=== PATIENT | female | born 1970 | race Caucasian/White ===

== ENCOUNTER → 2021-05-29 | Outpatient (CLI) | payer OTHER ==
[~2021-05-29] MED LIST: APAP500 PO; DERMOPLAST SPRA56 ML; IBUPROFEN 600600 M1 PO; LANOLIN56 GM; SENOKOT-S1 TA1 PO; TUCKS MEDICATE1 EAC1
== END ==
LOC: RAD 14:36
PROVIDERS: ATTEND Family Medicine
DX: R05.3 Chronic cough (principal)